=== PATIENT | female | born 1950 | race Caucasian/White ===

== ENCOUNTER → 2017-06-24 13:32 | Outpatient (CLI) | payer MEDICARE, OTHER ==
[2017-06-24 14:42] LABS: PLT FUNCT.(P2Y12) PLAVIX 130 PRU (194-418)
== END | disposition home or self-care (01) ==
LOC: D.LAB 10:00
PROVIDERS: Radiology Vascular & Interventional Radiology
DX: I67.1 Cerebral aneurysm, nonruptured (principal)

== ENCOUNTER → 2017-08-06 11:42 | Outpatient (CLI) | payer MEDICARE, OTHER ==
[2017-08-06 12:50] LABS: PLT FUNCT.(P2Y12) PLAVIX 9 PRU (194-418)
== END | disposition home or self-care (01) ==
LOC: D.LAB 11:42
PROVIDERS: Radiology Vascular & Interventional Radiology
DX: I67.1 Cerebral aneurysm, nonruptured (principal)

== ENCOUNTER → 2017-09-03 11:56 | Outpatient (CLI) | payer MEDICARE, OTHER ==
[2017-09-03 13:35] LABS: PLT FUNCT.(P2Y12) PLAVIX 4 PRU (194-418)
== END | disposition home or self-care (01) ==
LOC: D.LAB 11:56
PROVIDERS: Radiology Vascular & Interventional Radiology
DX: I67.1 Cerebral aneurysm, nonruptured (principal)

== ENCOUNTER → 2017-09-16 09:33 | Outpatient (CLI) | payer MEDICARE, OTHER ==
[2017-09-16 10:39] LABS: PLT FUNCT.(P2Y12) PLAVIX 20 PRU (194-418)
== END | disposition home or self-care (01) ==
LOC: D.LAB 09:33
PROVIDERS: Radiology Vascular & Interventional Radiology
DX: I67.1 Cerebral aneurysm, nonruptured (principal)

== ENCOUNTER → 2017-11-04 12:27 | Outpatient (CLI) | payer MEDICARE, OTHER ==
[2017-11-04 13:17] LABS: PLT FUNCT.(P2Y12) PLAVIX 1 PRU (194-418)
== END | disposition home or self-care (01) ==
LOC: D.LAB 12:27
PROVIDERS: Radiology Vascular & Interventional Radiology
DX: I67.1 Cerebral aneurysm, nonruptured (principal)

== ENCOUNTER → 2017-12-03 10:21 | Outpatient (CLI) | payer MEDICARE, OTHER ==
[2017-12-03 12:27] LABS: PLT FUNCT.(P2Y12) PLAVIX 72 PRU (194-418)
== END | disposition home or self-care (01) ==
LOC: D.LAB 10:21
PROVIDERS: Radiology Vascular & Interventional Radiology
DX: I67.1 Cerebral aneurysm, nonruptured (principal)